=== PATIENT | male | born 1965 | race Caucasian/White ===

== ENCOUNTER 2018-07-12 14:39 | Outpatient (RCR) | payer OTHER ==
[~2018-07-12 14:39] MED LIST: BACTRIM DS 8001 TAB PO; NEURONTIN100 MG/CAP PO; WELLBUTRIN XL150 MG PO
== END 2018-07-27 15:41 | disposition home or self-care (01) ==
LOC: WSOH 14:39
DX: M25.561 Pain in right knee (principal); Y92.61 Building [any] under construction as the place of occurrence of the external cause; X58.XXXA Exposure to other specified factors, initial encounter; Y93.H3 Activity, building and construction; Y99.0 Civilian activity done for income or pay
CPT/HCPCS: 24774; L1810